=== PATIENT | female | born 1970 | race Caucasian/White ===

== ENCOUNTER 2021-08-23 00:10 | Emergency (ER) | payer MEDICARE, OTHER ==
[2021-08-23 00:46] LABS: HEMOGLOBIN 12.7 gm/dl (12.3-15.3); RED BLOOD COUNT 4.5 M/UL (4.00-5.10); WHITE BLOOD COUNT 6.5 K/UL (4.5-11.0)
[2021-08-23 01:00] LABS: BUN/CREATININE RATIO 22 (0-10)
== END 2021-08-23 06:05 | disposition home or self-care (01) ==
LOC: ER1 00:10
PROVIDERS: Emergency Medicine
DX: R07.2 Precordial pain (principal); R11.0 Nausea; R00.2 Palpitations; R42 Dizziness and giddiness; R06.02 Shortness of breath; E66.9 Obesity, unspecified; Z86.711 Personal history of pulmonary embolism; Z90.49 Acquired absence of other specified parts of digestive tract; Z90.710 Acquired absence of both cervix and uterus; Z88.2 Allergy status to sulfonamides; Z20.822 Contact with and (suspected) exposure to COVID-19
CPT/HCPCS: 36415; 71045; 80053; 82550; 82553; 83690; 83874; 83880; 84484; 85025; 85379; 85610; 85730; 93005; 99285; Q9967; U0002